=== PATIENT | male | born 1985 | race Two or more races ===

== ENCOUNTER 2017-03-06 22:37 | Emergency (ER) | payer OTHER ==
[~2017-03-06] VITALS: Ht 170.2 cm; Wt 108.9 kg
[~2017-03-06 22:37] MED LIST: METFORMIN HCL500 M4 ORAL
[2017-03-06 23:29] LABS: APPEARANCE,URINE CLEAR; KETONES,URINE NEGATIVE (NEGATIVE); LEUKOCYTE ESTERASE ,URINE NEGATIVE (NEGATIVE); NITRITE,URINE NEGATIVE (NEGATIVE); PH,URINE 7 (4.5-8.0); UROBILINOGEN,URINE NORMAL MG/DL (0.0-1.0)
[2017-03-06 23:38] LABS: PROTEIN,URINE NEGATIVE (NEGATIVE); WBC,URINE 0 /HPF (0 - 0)
[2017-03-06 23:39] LABS: RBC,URINE 0-2 /HPF (0 - 0)
[2017-03-06 23:49] LABS: BASOPHILS % (AUTO) 1.5 % (0.0-2.0); EOSINOPHILS % (AUTO) 1.9 % (0.0-3.0); LYMPHOCYTES % (AUTO) 25.8 % (20.0-45.0); MEAN CORPUSCULAR HEMOGLOBIN 30.8 PG (27.0-31.0); MEAN CORPUSCULAR HGB CONC 34.6 G/DL (32.0-36.0); MEAN CORPUSCULAR VOLUME 89 FL (80-99); MEAN PLATELET VOLUME 9.7 FL (6.5-10.1); MONOCYTES % (AUTO) 8.1 % (1.0-10.0); NEUTROPHILS % (AUTO) 62.7 % (45.0-75.0); PLATELET COUNT 201 K/UL (150-450); RED BLOOD COUNT 5.11 M/UL (4.70-6.10); RED CELL DISTRIBUTION WIDTH 11.5 % (11.6-14.8); WHITE BLOOD COUNT 8.4 K/UL (4.8-10.8)
[2017-03-07 00:03] LABS: ANION GAP 11 (5-15); CALCIUM 9.1 mg/dL (8.6-10.2); CARBON DIOXIDE 25 mEQ/L (20-30); CHLORIDE 95 mEQ/L (98-107); CREATININE 0.7 mg/dL (0.7-1.2); GLOMERULAR FILTRATION RATE > 60 mL/min (>60); HEMOLYSIS 50; POTASSIUM 3.8 mEQ/L (3.4-4.9); SODIUM 131 mEQ/L (135-145)
[2017-03-07] MEDS ORDERED: METFORMIN HCL500 M1 ORAL (00:14)
--- NOTE | 2017-03-07 00:14 | Emergency Room Report ---
History of Present Illness General Chief Complaint: General Complaint Source: Patient Present Illness HPI Is a 32-year-old male with a history of diabetes her last admission here. He was prescribe his metformin. He said that he was never placed back on it. He presents with chief complaint of numbness to his right index finger and now tingling numbness to the left arm. No fever or chills. [place] weak. No focal deficit. Denies any urinary complaint. No chest pain, shortness of breath, diaphoresis Allergies: Coded Allergies: PENICILLINS (Verified Allergy, Unknown, BLISTERS, 07/11/09) Patient History Past Medical History: see triage record, old chart reviewed, DM Past Surgical History: other Pertinent Family History: none Social History: Denies: smoking Immunizations: other Reviewed Nursing Documentation: PMH: Agreed, PSxH: Agreed Nursing Documentation-PMH Past Medical History: No History, Except For Hx Cardiac Problems: No Hx Diabetes: Yes - Borderline DM Hx Cancer: No Hx Gastrointestinal Problems: Yes - Appendectomy Hx Neurological Problems: No Review of Systems Eye: Denies: blurred vision, eye pain ENT: Denies: ear pain, nose congestion, throat swelling Respiratory: Denies: cough, shortness of breath Cardiovascular: Denies: chest pain, palpitations Gastrointestinal: Denies: abdominal pain, diarrhea, nausea, vomiting Musculoskeletal: Denies: back pain, joint pain Skin: Denies: rash Neurological: Denies: headache, numbness Endocrine: Denies: increased thirst, increased urine Hematologic/Lymphatic: Denies: easy bruising All Other Systems: negative except mentioned in HPI Physical Exam Vital Signs Date Time Temp Pulse Resp B/P Pulse Ox O2 Delivery O2 Flow Rate FiO2 03/06/17 22:43 98.6 86 16 146/94 100 Room Air vitals unremarkable Sp02 EP Interpretation: reviewed, normal General Appearance: well appearing, no apparent distress, alert Head: normocephalic, atraumatic Eyes: bilateral eye EOMI, bilateral eye PERRL ENT: hearing grossly normal, normal pharynx Neck: full range of motion, supple, no meningismus Respiratory: chest non-tender, lungs clear, normal breath sounds Cardiovascular #1: regular rate, rhythm, no murmur Gastrointestinal: normal bowel sounds, non tender, no mass, no organomegaly, no bruit, non-distended Musculoskeletal: back normal, gait/station normal, normal range of motion Psychiatric: mood/affect normal Skin: warm/dry Medical Decision Making Diagnostic Impression: Primary Impression: Diabetes Qualified Codes: E11.65 - Type 2 diabetes mellitus with hyperglycemia Additional Impression: Paresthesia ER Course Patient presents with diabetes. Nothing treated. No evidence of CVA or TIA. No evidence of infection. We'll discharge home. Lab Results Impression labs with elevated glucose Last Vital Signs Date Time Temp Pulse Resp B/P Pulse Ox O2 Delivery O2 Flow Rate FiO2 03/06/17 22:43 98.6 86 16 146/94 100 Room Air Status: improved Disposition: HOME, SELF-CARE Condition: Stable Scripts Metformin Hcl* (METFORMIN HCL*) 500 Mg Tablet 500 MG ORAL TWICE A DAY, #60 TAB Prov: ECTOR MORALES M.D. 03/07/17 Additional Instructions: Followup with Dr. Siegel within a week. Return if symptom worsen. ECTOR MORALES M.D. Mar 07, 2017 00:14
[2017-03-07 00:34] VITALS: BP 140/89
== END 2017-03-07 00:36 | disposition home or self-care (01) ==
LOC: EMR 23:00
DX: E11.65 Type 2 diabetes mellitus with hyperglycemia (principal); R20.2 Paresthesia of skin; Z88.0 Allergy status to penicillin
CPT/HCPCS: 36415; 80048; 80300; 81001; 85025; 96374; 99284; J1815